=== PATIENT | male | born 1965 | race Caucasian/White ===

== ENCOUNTER 2019-07-08 07:12 | Emergency (ER) | payer OTHER, SELFPAY ==
--- NOTE | ~2019-07-08 | XR_ITS ---
EXAMINATION: XR chest 2V DATE: 07/08/2019 08:16 INDICATION: Influenza. Fever. TECHNIQUE: Frontal and lateral views of the chest were obtained. COMPARISON: Chest 2 views 05/04/2016 FINDINGS: There are mild airspace opacities in right lower lobe. No pleural effusion or pneumothorax. Calcified right hilar and mediastinal lymph nodes are consistent with old granulomatous disease. The heart size is normal. IMPRESSION: 1. Mild airspace opacities in right lower lobe, consistent with atelectasis versus pneumonia. Reviewed, dictated and finalized at location A. ATTENDANT IMPRESSION: 1. Mild airspace opacities in right lower lobe, consistent with atelectasis elaina lucinda pneumonia.
[2019-07-08 07:19] VITALS: BP 154/89; PULSE 131; RESP 20; TEMP 38.7; O2SAT 96
--- NOTE | 2019-07-08 08:05 | ED.URI ---
HPI - URI/Sore Throat General Chief Complaint: Upper Respiratory Infection Stated Complaint: cold sx Time Seen by Provider: 07/08/19 07:59 Source: patient and RN notes reviewed Mode of arrival: ambulatory Limitations: no limitations History of Present Illness HPI Narrative: Pt is a 53 y/o male who presents to the ED with c/o flu-like symptoms starting yesterday. His notes that he first became sick roughly 1.5 weeks ago, but states that his symptoms had resolved until yesterday. Pt reports having a fever, chills, body aches, productive cough, and a sinus headache. According to the nurse, the pt has been taking Tylenol and Ibuprofen for his symptoms. MD elicited complaint: other (Flu-like symptoms) Onset (ago): day(s) (1) Associated symptoms: fever, chills, headache, cough (productive) and other (body aches) Treatments prior to arrival: acetaminophen and ibuprofen Related Data Home Medications Medication Instructions Recorded Confirmed amlodipine 10 mg DAILY 07/08/19 atenolol 50 mg PO DAILY 07/08/19 atorvastatin 40 mg PO DAILY 07/08/19 hydrochlorothiazide 50 mg PO DAILY 07/08/19 lisinopril 5 mg PO DAILY 07/08/19 potassium chloride 10 meq PO DAILY 07/08/19 Allergies Allergy/AdvReac Type Severity Reaction Status Date / Time metformin AdvReac Diarrhea Verified 07/08/19 07:24 Review of Systems Review of Systems: All systems reviewed & are unremarkable except as noted in HPI and below Constitutional: Constitutional: Reports body ache(s), Reports chills, Reports fever(s) and Reports headache(s) Respiratory: Respiratory: Reports cough (productive) PMFSH Past Medical History Medical History Diabetes Hip fracture, right HLD (hyperlipidemia) HTN (hypertension) Surgical History Surgical History History of hip surgery repair of fractured rt hip Social History Social History Smoking status: Former smoker Comments PCP is Dr. Dillon. Exam Const: General: healthy appearing, no acute distress and well developed Nutritional Appearance: well nourished Orientation/consciousness: patient oriented x3 (alert) and Other orientation findings (Alert) Limitations: no limitations HENMT: Head: normocephalic and atraumatic Resp: Effort & Inspection: normal respiratory effort Auscultation: clear to auscultation bilaterally, no rales, no rhonchi, no wheezes and other (breath sounds equal) Cardio: Rate: tachycardic Rhythm: regular rhythm Heart sounds: no gallops and no murmurs GI: Inspection: non-distended GI Palp: No abdominal tenderness and Yes Soft to palpation Auscultation: other (bowel sounds present) Skin: General skin exam: normal color and no rashes or lesions noted Neuro: General: patient oriented x3 (alert), moves all extremities and no focal motor deficits Cranial nerves: Yes facial symmetry Speech: normal speech Motor exam (neuro): Motor abnormalities not present Extrem: General: normal to inspection, full ROM and no pedal edema Psych: Affect: normal affect Course Vital Signs Vital signs: Vital Signs Temperature 38.7 C H 07/08/19 07:19 Pulse Rate 131 H 07/08/19 07:19 Respiratory Rate 20 07/08/19 07:19 Blood Pressure 154/89 H 07/08/19 07:19 Pulse Oximetry 96 07/08/19 07:19 Temperature 38.7 C H 07/08/19 07:19 Pulse Rate 102 H 07/08/19 09:58 Respiratory Rate 16 07/08/19 09:58 Blood Pressure 165/86 H 07/08/19 09:58 Pulse Oximetry 97 07/08/19 09:58 MDM - URI/Sore Throat Lab Data Result diagrams: 07/08/19 08:58 Labs: Lab Results 07/08/19 Range/Units 08:58 Sodium 132 L (137-145) mmol/L Potassium 3.8 (3.4-5.0) mmol/L Chloride 92 L (98-107) mmol/L Carbon Dioxide 29 (22-30) mmol/L BUN 14 (9-20) mg/dL Creatinine 1.00 (0.7-1.3) mg/dL Estim Creat Clear Calc 90 ml/min Estimate
[2019-07-08] MEDS: ACETAMINOPHEN 500 MG TABLET 1000 MG PO (08:44)
[2019-07-08] MEDS: LACTATED RINGERS 1,000 ML 999 ML IV CONT ×2 (08:56)
[2019-07-08 09:14] LABS: Blood Urea Nitrogen 14 mg/dL (9-20); Calcium 9.4 mg/dL (8.4-10.2); Carbon Dioxide 29 mmol/L (22-30); Chloride 92 mmol/L (98-107); Estimated CRCL calculation 90 ml/min; Estimated Glomerular Filt Rate > 60; Glucose 174 mg/dL (75-110); Potassium 3.8 mmol/L (3.4-5.0); Sodium 132 mmol/L (137-145)
[2019-07-08 09:58] VITALS: BP 165/86; PULSE 102; RESP 16; O2SAT 97
== END 2019-07-08 10:14 | disposition home or self-care (01) ==
PROVIDERS: Emergency Provider Emergency Medicine; PCP Internal Medicine Infectious Disease
DX: J10.1 Influenza due to other identified influenza virus with other respiratory manifestations (principal); E11.9 Type 2 diabetes mellitus without complications; E78.5 Hyperlipidemia, unspecified; I10 Essential (primary) hypertension; Z87.891 Personal history of nicotine dependence; R91.8 Other nonspecific abnormal finding of lung field
CPT/HCPCS: 36415; 71046; 80048; 87804; 96360; 99283; A9270; J7120

== ENCOUNTER 2019-07-18 11:34 | Observation (INO) | payer OTHER, BC, SELFPAY ==
[2019-07-18] VITALS (27 sets, daily range): BP systolic 104–137; BP diastolic 58–81; PULSE 61–76; RESP 16–20; TEMP 35.8–36.6; O2SAT 93–99
--- NOTE | ~2019-07-18 | XR_ITS ---
XR chest 2V DATE: 07/18/2019 11:57 INDICATION: Hemoptysis TECHNIQUE: PA and lateral views COMPARISON: 07/08/2021 view chest FINDINGS: There is increased infiltrate in the right lower lobe and mild infiltrate in the left retro cardiac area, left lower lobe since 07/08/2019. Findings are consistent with bilateral pneumonia. Normal heart size. There is evidence of old pulmonary granulomas disease. No hilar or mediastinal enl argement. No pleural effusion or pulmonary vascular congestion or pneumothorax. Mild thoracic and lumbar scoliosis. IMPRESSION: Bilateral lower lobe infiltrates, right greater than left, increased since 07/08/2019 Reviewed, dictated and finalized at location A. N STRINGER IMPRESSION: Bilateral lower lobe infiltrates, right greater than left, increase d since 07/08/2019
[2019-07-18 11:55] LABS: Basophils Percent Auto 0.4 % (0.2-1.2); Eosinophils Absolute Auto 0.1 K/mm3 (0-0.3); Eosinophils Percent Auto 2.1 % (0-4.4); Hematocrit 38.9 % (42.0-52.0); Hemoglobin 12.3 g/dL (14.0-18.0); Lymphocytes Absolute Auto 1.02 K/mm3 (0.9-3.2); Lymphocytes Percent Auto 36.2 % (18.3-44.2); Mean Corpuscular HGB Conc 31.6 g/dl (32-36); Mean Corpuscular Hemoglobin 26.7 pg (26-34); Mean Corpuscular Volume 84.4 fl (80-100); Mean Platelet Volume 8.8 fl (7.4-10.4); Monocytes Absolute Auto 0.1 K/mm3 (0.1-0.6); Monocytes Percent Auto 3.9 % (2.6-8.5); Neutrophils Absolute Auto 1.6 K/mm3 (1.3-6.7); Neutrophils Percent Auto 57.4 % (45.5-73.1); Platelet Count Result 401 k/mm3 (150-375); Red Blood Count 4.61 M/mm3 (4.6-6.20); Red Cell Distribution Width 16.6 % (11.5-14.5); White Blood Count 2.8 K/mm3 (4.5-10.0)
[2019-07-18 12:17] LABS: Blood Urea Nitrogen 18 mg/dL (9-20); Calcium 9.8 mg/dL (8.4-10.2); Carbon Dioxide 26 mmol/L (22-30); Chloride 94 mmol/L (98-107); Estimated CRCL calculation 100 ml/min; Estimated Glomerular Filt Rate > 60; Glucose 210 mg/dL (75-110); Potassium 4.1 mmol/L (3.4-5.0); Sodium 136 mmol/L (137-145)
--- NOTE | 2019-07-18 12:32 | ED.URI ---
HPI - URI/Sore Throat General Chief Complaint: Unspecified Stated Complaint: coughing up blood Time Seen by Provider: 07/18/19 12:22 Source: patient and RN notes reviewed Mode of arrival: ambulatory Limitations: no limitations History of Present Illness HPI Narrative: A 53 y/o male presents to the with hemoptsis for the past 9 days. He states that he was seen here on 07/08/19 and was dx with the flu. He reports that in the morning 9 days ago he began to cough and coughed up some phlegm with streaks of blood in it. He notes that every morning since he has had this happen, but only in the mornings. He also notes that his other flu symptoms have resolved. He denies any fevers, chills, SOB, N/V/D, ABD pain, BARRETT, and any other medical complaints at this time. MD elicited complaint: other (hemoptsis) Onset (ago): day(s) (9) Consistency: intermittent (every morning) Description of mucous: bloody (streaks) Associated symptoms: denies other symptoms Related Data Home Medications Medication Instructions Recorded Confirmed amlodipine 10 mg DAILY 07/08/19 atenolol 50 mg PO DAILY 07/08/19 atorvastatin 40 mg PO DAILY 07/08/19 hydrochlorothiazide 50 mg PO DAILY 07/08/19 lisinopril 5 mg PO DAILY 07/08/19 potassium chloride 10 meq PO DAILY 07/08/19 Allergies Allergy/AdvReac Type Severity Reaction Status Date / Time metformin AdvReac Diarrhea Verified 07/18/19 11:38 Review of Systems Review of Systems: All systems reviewed & are unremarkable except as noted in HPI and below Constitutional: Constitutional: Denies chills, Denies fatigue, Denies fever(s), Denies headache(s) and Denies night sweats Eyes: Eyes: Denies change in vision, Denies loss of vision and Denies other visual disturbances ENT: Denies headache(s), Denies hoarseness, Denies epistaxis, Denies nasal congestion and Denies sore throat Cardiovascular: Cardiovascular: Denies chest pain, Denies leg edema, Denies palpitations and Denies dyspnea Respiratory: Respiratory: Reports hemoptysis (streaking), Denies dyspnea and Denies wheezing Gastrointestinal: Gastrointestinal: Denies abdominal pain, Denies diarrhea, Denies nausea and Denies vomiting Genitourinary: Genitourinary: Denies hematuria, Denies dysuria and Denies urinary frequency Musculoskeletal: Musculoskeletal: Denies abnormal gait, Denies deformity, Denies joint swelling, Denies muscle weakness and Denies numbness Integumentary/Breasts: Skin/Breast: Denies rash, Denies unusual bruising and Denies wounds Neurologic: Denies abnormal gait, Denies headache(s), Denies focal weakness, Denies loss of vision and Denies numbness Psychiatric: Psychiatric: Reports no additional psychiatric complaints Endocrine: Endocrine: Denies fatigue and Denies palpitations Hematologic/Lymphatic: Hematologic/Lymphatic: Denies easy bleeding and Denies easy bruising Allergic/Immunologic: Allergic/Immunologic: Denies wheezing PMFSH Past Medical History Medical History Diabetes Hip fracture, right HLD (hyperlipidemia) HTN (hypertension) Surgical History Surgical History History of hip surgery repair of fractured rt hip Social History Social History Smoking status: Former smoker Exam Const: General: healthy appearing, no acute distress and well developed Nutritional Appearance: well nourished Orientation/consciousness: patient oriented x3 (alert) and Other orientation findings (Alert) Limitations: no limitations HENMT: Head: normocephalic and atraumatic Ears: external ears normal General nose exam: No nasal discharge present and no epistaxis Face and sinus: face symmetric Mouth: Yes lip normal, Yes tongue normal and Yes moist mucous membranes Throat: other (No exudate, no erythema) Eyes: Conjunctivae: conjunctivae normal Sclera: sclerae normal EOM: EOMs intact bilaterally Neck:
[2019-07-18] MEDS: ALBUTEROL SULFATE NEB 2.5 MG/0.5 ML INH 5 MG INHALATION (12:52)
[2019-07-18] MEDS: IPRATROPIUM BR 0.02% INH SOLN 0.5 MG/2.5 ML VIAL INHALATION (12:53)
--- NOTE | 2019-07-18 13:15 | PC.NURSE ---
pt requesting to take with edp before tylenol or ivf iniated.
[2019-07-18 14:16] LABS: INR 1.1; Prothrombin Time 13.4 Seconds (11.1-14.7)
[2019-07-18 14:17] LABS: Partial Thromboplastin Time 28.9 SECONDS (22.3-36.8)
[2019-07-18] MEDS: AZITHROMYCIN 250 MG TABLET 500 MG PO (14:40)
[2019-07-18] MEDS: LACTATED RINGERS 1,000 ML 999 ML IV CONT (14:40)
[2019-07-18 15:46] LABS: Hemoglobin A1C 7.7 % (<5.7)
--- NOTE | 2019-07-18 16:15 | PM.IMHP ---
H&P: HPI History of Present Illness Chief complaint: coughing up blood Narrative: Pernell Astorga is a very pleasant 53-year-old male with [id number] type 2 diabetes mellitus, hypertension, and hyperlipidemia who presented to the emergency department earlier this afternoon via private vehicle from home for evaluation of coughing up blood. He was diagnosed with influenza A July 08, 2019 and completed a course of Tamiflu. He has felt much better with regards to his flu symptoms however continues to have a nagging cough. In fact, he told his today that he has been coughing up blood admixed with clear sputum and she insisted he come in for evaluation. He denies epistaxis and says he has not been coughing particularly hard. He has never had similar symptoms in the past. Weight has remained stable. He has been afebrile for the last 5 days. No night sweats. No exposure to tuberculosis. No nausea, vomiting, or diarrhea. Review of Systems Review of Systems: Narrative: 12 systems are reviewed with pertinent positives and negatives as per HPI. He has been afebrile for the last several days. Appetite is improved. Flu symptoms have abated except for the cough. No chest pain or pleuritic pain. Denies shortness of breath. No nausea, vomiting, or diarrhea. He admits that he does not check his glucose at home. He denies retinopathy, nephropathy, and neuropathy however he has been having some tingling in his right index finger and is wondering if it is related to carpal tunnel. Except as document, all other systems were reviewed and are negative. [facility] Past Medical History Medical History (Updated 07/18/19 @ 17:35 by Leslye Bernard PA-C) Hip fracture, right Hyperlipidemia Hypertension Osteoarthritis Type 2 diabetes mellitus Hemoglobin A1c was 7.7% today. Surgical History Surgical History (Updated 07/18/19 @ 17:30 by Leslye Bernard PA-C) History of hip surgery repair of fractured rt hip Status post right knee replacement Family History Family History (Updated 07/18/19 @ 17:31 by Leslye Bernard PA-C) Mother Carcinoma of colon Social History Social History (Updated 07/18/19 @ 17:32 by Leslye Bernard PA-C) Social History: The patient is and lives with his in [place]. He has no biological children. He designates his , Janneth, as his surrogate decision-maker and he wishes to be a full code. He has a remote smoking history and quit 30+ years ago. No alcohol or drug abuse. He is a driver lifter of sanitation truck. Meds Home Medications and Allergies Home Medications Medication Instructions Recorded Confirmed Type amlodipine 10 mg DAILY 07/08/19 History atenolol 50 mg PO DAILY 07/08/19 History atorvastatin 40 mg PO DAILY 07/08/19 History hydrochlorothiazide 50 mg PO DAILY 07/08/19 History lisinopril 5 mg PO DAILY 07/08/19 History oseltamivir [Tamiflu] 75 mg PO DAILY #5 cap 07/08/19 Rx potassium chloride 10 meq PO DAILY 07/08/19 History Allergies Allergy/AdvReac Type Severity Reaction Status Date / Time metformin AdvReac Diarrhea Verified 07/18/19 11:38 Vital Signs Vital Signs - 24 hr 07/18/19 11:36 07/18/19 12:54 07/18/19 13:03 Temperature 96.4 F L Pulse Rate 73 64 64 Respiratory Rate 20 20 20 Blood Pressure 137/81 Pulse Oximetry 98 07/18/19 13:14 07/18/19 13:15 07/18/19 13:16 Temperature Pulse Rate 69 69 70 Respiratory Rate Blood Pressure 121/70 Pulse Oximetry 94 93 94 07/18/19 13:32 07/18/19 13:45 07/18/19 13:46 Temperature Pulse Rate 76 64 64 Respiratory Rate Blood Pressure 109/74 Pulse Oximetry 95 96 96 07/18/19 14:00 07/18/19 14:01 07/18/19 14:21 Temperature Pulse Rate 64 67 66 Respiratory Rate Blood Pressure 114/72 Pulse Oximetry 94 95 96 07/18/19 14:30 07/18/19 14:31 07/18/19 14:51 Temperature Pulse Rate 61 62 69 Respiratory Rate Blood Pressure 108/71 Pulse Oxim
--- NOTE | 2019-07-18 17:15 | ED.GENADULT ---
HPI - General Adult General Source: patient and RN notes reviewed Mode of arrival: ambulatory Limitations: no limitations Related Data Home Medications Medication Instructions Recorded Confirmed amlodipine 10 mg DAILY 07/08/19 atenolol 50 mg PO DAILY 07/08/19 atorvastatin 40 mg PO DAILY 07/08/19 hydrochlorothiazide 50 mg PO DAILY 07/08/19 lisinopril 5 mg PO DAILY 07/08/19 potassium chloride 10 meq PO DAILY 07/08/19 Allergies Allergy/AdvReac Type Severity Reaction Status Date / Time metformin AdvReac Diarrhea Verified 07/18/19 11:38 [facility] Past Medical History Medical History Diabetes Hip fracture, right HLD (hyperlipidemia) HTN (hypertension) Surgical History Surgical History History of hip surgery repair of fractured rt hip Social History Social History Smoking status: Former smoker Course Vital Signs Vital signs: Vital Signs Temperature 96.4 F L 07/18/19 11:36 Pulse Rate 73 07/18/19 11:36 Respiratory Rate 20 07/18/19 11:36 Blood Pressure 137/81 07/18/19 11:36 Pulse Oximetry 98 07/18/19 11:36 Temperature 96.4 F L 07/18/19 11:36 Pulse Rate 71 07/18/19 16:49 Respiratory Rate 16 07/18/19 16:49 Blood Pressure 107/65 07/18/19 16:49 Pulse Oximetry 95 07/18/19 16:49 Medical Decision Making Vital Signs Vital Signs: Vital Signs Temperature 96.4 F L 07/18/19 11:36 Pulse Rate 73 07/18/19 11:36 Respiratory Rate 20 07/18/19 11:36 Blood Pressure 137/81 07/18/19 11:36 Pulse Oximetry 98 07/18/19 11:36 Temperature 96.4 F L 07/18/19 11:36 Pulse Rate 71 07/18/19 16:49 Respiratory Rate 16 07/18/19 16:49 Blood Pressure 107/65 07/18/19 16:49 Pulse Oximetry 95 07/18/19 16:49 Lab Data Result diagrams: 07/18/19 11:45 07/18/19 11:44 Labs: Lab Results 07/18/19 07/18/19 07/18/19 Range/Units 11:44 11:44 11:44 WBC (4.5-10.0) K/mm3 RBC (4.6-6.20) M/mm3 Hgb (14.0-18.0) g/dL Hct (42.0-52.0) % MCV (80-100) fl MCH (26-34) pg MCHC (32-36) g/dl RDW (11.5-14.5) % Plt Count (150-375) k/mm3 MPV (7.4-10.4) fl Immature Gran % (Auto) (0-0.5) % Neut % (Auto) (45.5-73.1) % Lymph % (Auto) (18.3-44.2) % [place] % (Auto) (2.6-8.5) % Eos % (Auto) (0-4.4) % Baso % (Auto) (0.2-1.2) % Lymph # (Auto) (0.9-3.2) K/mm3 [place] # (Auto) (0.1-0.6) K/mm3 Eos # (Auto) (0-0.3) K/mm3 Baso # (Auto) (0.0-0.1) K/mm3 Abs Immat Gran (auto) (0.00-0.031) K/mm3 Absolute Neuts (auto) (1.3-6.7) K/mm3 Absolute Nucleated RBC (0.0-0.012) K/mm3 Nucleated RBC % (0.0-0.2) % PT 13.4 (11.1-14.7) Seconds INR 1.1 APTT 28.9 (22.3-36.8) SECONDS Sodium 136 L (137-145) mmol/L Potassium 4.1 (3.4-5.0) mmol/L Chloride 94 L (98-107) mmol/L Carbon Dioxide 26 (22-30) mmol/L BUN 18 (9-20) mg/dL Creatinine 0.90 (0.7-1.3) mg/dL Estim Creat Clear Calc 100 ml/min Estimated GFR > 60 (59 - ) Glucose 210 H (75-110) mg/dL Hemoglobin A1c 7.7 H (<5.7) % Calcium 9.8 (8.4-10.2) mg/dL 07/18/19 Range/Units 11:45 WBC 2.8 L (4.5-10.0) K/mm3 RBC 4.61 (4.6-6.20) M/mm3 Hgb 12.3 L (14.0-18.0) g/dL Hct 38.9 L (42.0-52.0) % MCV 84.4 (80-100) fl MCH 26.7 (26-34) pg MCHC 31.6 L (32-36) g/dl RDW 16.6 H (11.5-14.5) % Plt Count 401 H (150-375) k/mm3 MPV 8.8 (7.4-10.4) fl Immature Gran % (Auto) 0.0 (0-0.5) % Neut % (Auto) 57.4 (45.5-73.1) % Lymph % (Auto) 36.2 (18.3-44.2) % [place] % (Auto) 3.9 (2.6-8.5) % Eos % (Auto) 2.1 (0-4.4) % Baso % (Auto) 0.4 (0.2-1.2) % Lymph # (Auto) 1.02 (0.9-3.2) K/mm3 [place] # (Auto) 0.1 (0.1-0.6) K/mm3 Eos # (Auto) 0.1 (0-0.3) K/mm3 Baso # (Auto) 0.0 (0.0-0.1) K/mm3 A
[2019-07-18] MEDS: LACTATED RINGERS 1,000 ML 125 ML IV CONT (18:00)
--- NOTE | 2019-07-18 18:16 | PC.NURSE ---
Patient arrived on our floor from ER @1650. Patient oriented to room and started on IVF as ordered. Patient able to ambulate independent safely.
[2019-07-18 18:17] LABS: Blood Urea Nitrogen 14 mg/dL (9-20); Calcium 9.2 mg/dL (8.4-10.2); Carbon Dioxide 25 mmol/L (22-30); Chloride 96 mmol/L (98-107); Estimated CRCL calculation 100 ml/min; Estimated Glomerular Filt Rate > 60; Glucose 258 mg/dL (75-110); Potassium 3.8 mmol/L (3.4-5.0); Sodium 133 mmol/L (137-145)
[2019-07-18 20:55] LABS: Glucose Point of Care 134 (65-105)
[2019-07-19] MEDS: LACTATED RINGERS 1,000 ML 125 ML IV CONT (02:00)
[2019-07-19 06:00] VITALS: BP 108/65; PULSE 72; RESP 16; TEMP 36.8; O2SAT 94
[2019-07-19 06:15] LABS: Basophils Percent Auto 0.3 % (0.2-1.2); Eosinophils Absolute Auto 0.1 K/mm3 (0-0.3); Hematocrit 36.7 % (42.0-52.0); Hemoglobin 11.8 g/dL (14.0-18.0); Immature Granulocyte Absolute 0.01 K/mm3 (0.00-0.031); Immature Granulocyte Percent A 0.3 % (0-0.5); Lymphocytes Absolute Auto 1.46 K/mm3 (0.9-3.2); Lymphocytes Percent Auto 47.6 % (18.3-44.2); Mean Corpuscular HGB Conc 32.2 g/dl (32-36); Mean Corpuscular Hemoglobin 27.1 pg (26-34); Mean Corpuscular Volume 84.4 fl (80-100); Mean Platelet Volume 8.6 fl (7.4-10.4); Monocytes Absolute Auto 0.1 K/mm3 (0.1-0.6); Monocytes Percent Auto 2.9 % (2.6-8.5); Neutrophils Absolute Auto 1.4 K/mm3 (1.3-6.7); Neutrophils Percent Auto 46.9 % (45.5-73.1); Platelet Count Result 398 k/mm3 (150-375); Red Blood Count 4.35 M/mm3 (4.6-6.20); Red Cell Distribution Width 16.5 % (11.5-14.5); White Blood Count 3.1 K/mm3 (4.5-10.0)
[2019-07-19 06:52] LABS: Blood Urea Nitrogen 15 mg/dL (9-20); Calcium 9.4 mg/dL (8.4-10.2); Carbon Dioxide 29 mmol/L (22-30); Chloride 96 mmol/L (98-107); Estimated CRCL calculation 100 ml/min; Estimated Glomerular Filt Rate > 60; Glucose 146 mg/dL (75-110); Potassium 4.1 mmol/L (3.4-5.0); Sodium 137 mmol/L (137-145)
[2019-07-19] MEDS: AMLODIPINE BESYLATE 5 MG TABLET 10 MG PO (08:39)
[2019-07-19] MEDS: atenoloL 50 MG TABLET PO (08:40)
[2019-07-19] MEDS: GLIMEPIRIDE 2 MG TABLET PO (08:40)
[2019-07-19] MEDS: lisinopriL 5 MG TABLET PO (08:40)
[2019-07-19] MEDS: POTASSIUM CHLORIDE 10 MEQ TABLET.ER PO (08:40)
[2019-07-19] MEDS: IPRATROPIUM BR 0.02% INH SOLN 0.5 MG/2.5 ML VIAL INHALATION ×2 (08:42→14:18)
[2019-07-19] MEDS: ALBUTEROL SULFATE NEB 2.5 MG/0.5 ML INH 5 MG INHALATION ×2 (08:42→14:18)
[2019-07-19 08:43] LABS: Glucose Point of Care 186 (65-105)
[2019-07-19 08:45] VITALS: PULSE 59; RESP 20
[2019-07-19 08:51] VITALS: PULSE 64; RESP 20
[2019-07-19] MEDS: hydroCHLOROthiazide 25 MG TABLET 50 MG PO (09:08)
[2019-07-19 12:23] LABS: Glucose Point of Care 73 (65-105)
[2019-07-19 14:00] VITALS: BP 107/66; PULSE 96; RESP 16; TEMP 36.4; O2SAT 97
[2019-07-19 14:20] VITALS: PULSE 69; RESP 20
[2019-07-19 14:31] VITALS: PULSE 73; RESP 20
--- NOTE | 2019-07-19 14:55 | PM.DS ---
DS: Diagnosis Admitting Diagnosis Admitting Diagnosis: Pneumonia, unspecified organism Discharge Diagnosis (1) Pneumonia: Code(s): J18.9 - Pneumonia, unspecified organism Status: Acute (2) Type 2 diabetes mellitus: Code(s): E11.9 - Type 2 diabetes mellitus without complications Status: Acute (3) Hypertension: Code(s): I10 - Essential (primary) hypertension Status: Acute DS: Summary Hospital Course Reason for hospitalization: Cough with hemoptysis Hospital Course: Admitted for cough with hemoptysis. Had been around multiple ill coworkers. Presented to ED were chest x-ray showed bibasilar infiltrates. Responded nicely to his Zithromax and ceftriaxone and vancomycin overnight. Was up and about eating and drinking not require oxygen and requesting go home the following day. Status at Discharge Functional status at discharge: independent ambulation Overall status at discharge: patient is progressing back to baseline Time Spent with Patient Time attestation: Total time spent providing and/or coordinating discharge services:33 m Time spent: Greater than 30 minutes Exam Narrative: Exam Narrative: Neck no JVD. Chest normal AP diameter. Normal effort. Rhonchi both lower lobes. Clear anteriorly. Heart regular no murmurs. Extremities no edema. Abdomen good bowel sounds soft nontender no mass. Cranial nerves intact to inspection. Tone and strength symmetric. DS: Data Data Completed and Pending Labs on day of discharge: Labs from last 24 hours 07/19/19 07/19/19 07/19/19 12:20 08:39 05:48 WBC 3.1 L RBC 4.35 L Hgb 11.8 L Hct 36.7 L MCV 84.4 MCH 27.1 MCHC 32.2 RDW 16.5 H Plt Count 398 H MPV 8.6 Immature Gran % (Auto) 0.3 Neut % (Auto) 46.9 Lymph % (Auto) 47.6 H [place] % (Auto) 2.9 Eos % (Auto) 2.0 Baso % (Auto) 0.3 Lymph # (Auto) 1.46 [place] # (Auto) 0.1 Eos # (Auto) 0.1 Baso # (Auto) 0.0 Abs Immat Gran (auto) 0.01 Absolute Neuts (auto) 1.4 Absolute Nucleated RBC 0.0 Nucleated RBC % 0.0 Sodium Potassium Chloride Carbon Dioxide BUN Creatinine Estim Creat Clear Calc Estimated GFR Glucose POC Capillary Glucose 73 186 H Hemoglobin A1c Calcium Ur L.pneumophila Ag Urine Pneumococcal Ag 07/19/19 07/19/19 07/18/19 05:48 05:47 20:51 WBC RBC Hgb Hct MCV MCH MCHC RDW Plt Count MPV Immature Gran % (Auto) Neut % (Auto) Lymph % (Auto) [place] % (Auto) Eos % (Auto) Baso % (Auto) Lymph # (Auto) [place] # (Auto) Eos # (Auto) Baso # (Auto) Abs Immat Gran (auto) Absolute Neuts (auto) Absolute Nucleated RBC Nucleated RBC % Sodium 137 Potassium 4.1 Chloride 96 L Carbon Dioxide 29 BUN 15 Creatinine 0.90 Cancelled Estim Creat Clear Calc 100 Cancelled Estimated GFR > 60 Cancelled Glucose 146 H POC Capillary Glucose 134 H Hemoglobin A1c Calcium 9.4 Ur L.pneumophila Ag Urine Pneumococcal Ag 07/18/19 07/18/19 07/18/19 18:52 18:01 11:44 WBC RBC Hgb Hct MCV MCH MCHC RDW Plt Count MPV Immature Gran % (Auto) Neut % (Auto) Lymph % (Auto) [place] % (Auto) Eos % (Auto) Baso % (Auto) Lymph # (Auto) [place] # (Auto) Eos # (Auto) Baso # (Auto) Abs Immat Gran (auto) Absolute Neuts (auto) Absolute Nucleated RBC Nucleated RBC % Sodium 133 L Potassium 3.8 Chloride 96 L Carbon Dioxide 25 BUN 14 Creatinine 0.90 Estim Creat Clear Calc 100 Estimated GFR > 60 Glucose 258 H POC Capillary Glucose Hemoglobin A1c 7.7 H Calcium 9.2 Ur L.pneumophila Ag Pending Urine Pneumococcal Ag Pending Preliminary micro results at discharge 07/18/19 14:56 Sputum Culture - Preliminary Sputum Discharge Plan Discharge Attending physic
--- NOTE | 2019-07-19 15:08 | PCRCNOTE ---
07/18/191999 and 07/19/19 0200-Window of time for administration has passed. See next scheduled administration.
[2019-07-21 16:30] LABS: Pneumococcal Antigen Urine Not Detected (Not Detected)
[2019-07-22 15:47] LABS: Legionella pneumophila Ag Ur Not Detected (Not Detected)
== END 2019-07-19 18:00 | disposition home or self-care (01) ==
LOC: ANHED 15:11 → ANH3MEDSUR 07-19 07:00
PROVIDERS: Emergency Medicine; Physician Assistant; Admitting Provider Family Medicine; Emergency Provider Emergency Medicine; PCP Internal Medicine Infectious Disease; Visit Provider Internal Medicine
DX: J18.9 Pneumonia, unspecified organism (principal); E11.9 Type 2 diabetes mellitus without complications; I10 Essential (primary) hypertension; E78.5 Hyperlipidemia, unspecified; M19.90 Unspecified osteoarthritis, unspecified site; Z87.891 Personal history of nicotine dependence; Z96.651 Presence of right artificial knee joint
CPT/HCPCS: 36415; 71046; 80048; 83036; 85025; 85610; 85730; 87070; 87205; 87449; 87899; 94640; 96361; 96365; 96367; 96375; 99285; A9270; G0378; J0456; J0696; J3370; J7120

== ENCOUNTER 2021-10-08 18:01 | Emergency (ER) | payer BC, SELFPAY ==
[2021-10-08 18:08] VITALS: BP 135/76; PULSE 66; RESP 16; TEMP 36.2; O2SAT 100
--- NOTE | 2021-10-08 18:10 | ED.URI ---
HPI - URI/Sore Throat General Chief Complaint: Upper Respiratory Infection Stated Complaint: congestion,sinus pain Time Seen by Provider: 10/08/21 18:11 Source: patient and RN notes reviewed Mode of arrival: ambulatory Limitations: no limitations History of Present Illness HPI Narrative: 56-year-old male with a history of diabetes, HTN, HLD presented for complaint of sinus pressure and congestion and right ear pain for the last 2 days. Endorses cough started today, itchy throat. Cough is nonproductive. He denies shortness of breath, wheezing, nausea, vomiting, diarrhea, fever or chills. He is vaccinated for COVID and flu. He has had 1 negative COVID test at home yesterday. Has been taking Zyrtec, Sudafed, and [place] for symptoms. is sick with a sinus infection. MD elicited complaint: cough Related Data Home Medications Medication Instructions Recorded Confirmed amlodipine 10 mg PO DAILY 07/08/19 10/08/21 atenolol 50 mg PO DAILY 07/08/19 10/08/21 hydrochlorothiazide 50 mg PO DAILY 07/08/19 10/08/21 lisinopril 5 mg PO DAILY 07/08/19 10/08/21 glimepiride 2 mg PO DAILY 07/18/19 10/08/21 empagliflozin [Jardiance] 25 mg PO DAILY 10/08/21 10/08/21 rosuvastatin 10 mg PO DAILY 10/08/21 10/08/21 Allergies Allergy/AdvReac Type Severity Reaction Status Date / Time metformin AdvReac Diarrhea Verified 10/08/21 18:09 Review of Systems Review of Systems: CONSTITUTIONAL: Denies malaise, chills, sweats, fever EYES: Denies visual changes, redness, or discharge ENT: Reports rhinorrhea, congestion, sinus pain CARDIOVASCULAR: Denies chest pain, palpitations, edema RESPIRATORY: Reports cough, post nasal drainage. Denies dyspnea GASTROINTESTINAL: Denies abdominal pain, nausea, vomiting, diarrhea SKIN: Denies rash or itching MUSCULOSKELETAL: denies myalgia NEUROLOGIC: Denies headache [facility] Past Medical History Medical History (Updated 10/08/21 @ 18:27 by Alejandrina Koehler, JONNIE) Hip fracture, right Hyperlipidemia Hypertension Osteoarthritis Type 2 diabetes mellitus Hemoglobin A1c was 7.7% today. Surgical History Surgical History History of hip surgery repair of fractured rt hip Status post right knee replacement Family History Family History Mother Carcinoma of colon Diabetes mellitus Social History Social History Social History: The patient is and lives with his in [place]. He has no biological children. He designates his , Janneth, as his surrogate decision-maker and he wishes to be a full code. He has a remote smoking history and quit 30+ years ago. No alcohol or drug abuse. He is a [employer] driver. Smoking packs per day: 1 Smoking cigarettes per day: 20.0 Tobacco type: cigarettes Smoking end date: 04/23/90 Alcohol intake: never Substance use: never Gender identity (if verbalized by the patient): Male Spiritual care concerns: No Agree to blood products: Yes Exam Narrative: GENERAL: Ill-appearing, nontoxic HEAD: Normocephalic EYES: conjunctivae clear ENT: Mucous membranes moist. TM's unable to visualize bilaterally due to cerumen; no tragal tenderness. Oropharynx erythematous without lesions or exudate, no drooling, no hoarseness, no trismus, uvula midline. No tripod positioning, muffled voice, soft palate or pharyngeal wall bulging NECK: Supple. No lymphadenopathy CHEST: Clear to auscultation, breath sounds equal. No wheezing, rhonchi, rales, or stridor. No respiratory distress, speaks in full sentences. HEART: Regular rate and rhythm. No murmur heard. SKIN: Warm, dry, no rash. NEURO: Alert and oriented x3. PSYCH: Normal mood and affect Course Course Emergency Course: Patient is aware of diagnosis, understands and agrees to treatment plan. Anticipatory guidance given. Андрей
[2021-10-08 18:24] VITALS: BP 135/76; PULSE 66; RESP 16; TEMP 36.2; O2SAT 100
== END 2021-10-08 18:34 | disposition home or self-care (01) ==
PROVIDERS: Emergency Provider Nurse Practitioner Family
DX: J30.2 Other seasonal allergic rhinitis (principal); E78.5 Hyperlipidemia, unspecified; I10 Essential (primary) hypertension; E11.9 Type 2 diabetes mellitus without complications; F17.210 Nicotine dependence, cigarettes, uncomplicated
CPT/HCPCS: 99213; G0463

== ENCOUNTER 2021-11-30 00:48 | Day surgery (SDC) | payer BC, SELFPAY ==
[2021-11-14 10:47] VITALS: BMI 29.4
--- NOTE | 2021-11-29 11:57 | WPDANESEPPF ---
Anes - Initial Pre Proc Eval Procedure: Operation Date: 11/30/21 10:30 Proposed Procedures p Screening Colonoscopy - Ulysses Florian MD Date/Time: 11/29/21 11:57 Surgeon: Ulysses Florian MD Pre Op Diagnosis: hx of colon polyps, family hx colon ca, neoplasm Patient Data Age: 56 Gender: M Height: 1.91 m Weight: 106.8 kg Allergies Allergy/AdvReac Type Severity Reaction Status Date / Time metformin AdvReac Diarrhea Verified 11/30/21 09:38 Home Medications Medication Instructions Recorded Confirmed Type amlodipine 10 mg PO DAILY 07/08/19 11/30/21 History atenolol 50 mg tablet 50 mg PO DAILY 07/08/19 11/30/21 History hydrochlorothiazide 50 mg tablet 50 mg PO DAILY 07/08/19 11/30/21 History lisinopril 5 mg tablet 5 mg PO DAILY 07/08/19 11/30/21 History glimepiride 2 mg tablet 2 mg PO DAILY 07/18/19 11/30/21 History empagliflozin 25 mg tablet 25 mg PO DAILY 10/08/21 11/30/21 History (Jardiance) fluticasone propionate 50 1 spray intranasal DAILY PRN 10/08/21 11/30/21 Rx mcg/actuation nasal allergy symptoms #16 grams spray,suspension (Flonase Allergy Relief) rosuvastatin 10 mg tablet 10 mg PO DAILY 10/08/21 11/30/21 History sodium sul 1.479 gram-potas ch See Rx Instructions PO PER PKG DIR 10/30/21 11/30/21 Rx 0.188 gram-magnes sul 0.225 gram #24 tabs tablet (Sutab) Patient hx anesthesia problems: none Family hx anesthesia problems: none Results Review: All pre-operative results and documents have been reviewed as part of the pre-operative evaluation. [facility] Past Medical History Medical History (Updated 11/29/21 @ 11:57 by Amish Alcaraz DO) Hairy cell leukemia Hip fracture, right Hyperlipidemia Hypertension Osteoarthritis Type 2 diabetes mellitus Hemoglobin A1c was 7.7% today. Surgical History Surgical History History of hip surgery repair of fractured rt hip Status post right knee replacement Family History Family History Mother Carcinoma of colon Diabetes mellitus Social History Social History Social History: The patient is and lives with his in [place]. He has no biological children. He designates his , Janneth, as his surrogate decision-maker and he wishes to be a full code. He has a remote smoking history and quit 30+ years ago. No alcohol or drug abuse. He is a [employer] driver. Smoking packs per day: 1 Smoking cigarettes per day: 20.0 Smoking status: Former smoker Tobacco type: cigarettes Smoking end date: 04/23/90 Alcohol intake: never Substance use: never Substance use type: does not use Living arrangements: with family Gender identity (if verbalized by the patient): Male Spiritual care concerns: No Agree to blood products: Yes Anes - Eval Final PreProcedure Day of Procedure 11/29/21 11:57 Patient weight: overweight Heart: regular rate and rhythm Lungs: clear to auscultation Airway: Mallampati scale class II Neurological: alert and oriented Last oral intake: >/= 8 hours ASA classification: III Emergent: no Anesthetic plan: proceed Anesthesia type and monitoring: general GIVS and standard monitoring Results Review: All pre-operative results and documents have been reviewed as part of the pre-operative evaluation. Informed Consent: The patient's anesthetic plan and its attendant risks and benefits were discussed with the patient/family/POA. Questions were solicited and answers provided to the satisfaction of the patient/family/POA.
[2021-11-30 09:38] LABS: Glucose Point of Care 95 mg/dl (65-105)
[2021-11-30 09:39] VITALS: BP 144/81; PULSE 57; RESP 21; TEMP 36.3; O2SAT 100
[2021-11-30] MEDS: LACTATED RINGERS 1,000 ML 150 ML IV CONT (09:51)
[2021-11-30] MEDS: AMPICILLIN 2 GM/NS 100 ML 2 GM/100 ML BAG IVPB (09:59)
--- NOTE | 2021-11-30 10:04 | PM.HPGS ---
History of Present Illness History of Present Illness Consent: Risks, benefits, and alternatives have been discussed and questions answered. Patient agrees to proceed with procedure. Chief complaint: hx of colon polyps, family hx colon ca, neoplasm Narrative: Pernell Astorga is a 56 year old male referred for colon cancer screening. He has a history of polyps. Also he has a family history of colon cancer. Review of Systems Review of Systems: All systems reviewed & are unremarkable except as noted in HPI and below PMFSH Past Medical History Medical History Hairy cell leukemia Hip fracture, right Hyperlipidemia Hypertension Osteoarthritis Type 2 diabetes mellitus Hemoglobin A1c was 7.7% today. Surgical History Surgical History History of hip surgery repair of fractured rt hip Status post right knee replacement Family History Family History Mother Carcinoma of colon Diabetes mellitus Social History Social History Social History: The patient is and lives with his in [place]. He has no biological children. He designates his , Janneth, as his surrogate decision-maker and he wishes to be a full code. He has a remote smoking history and quit 30+ years ago. No alcohol or drug abuse. He is a [employer] truck driver. Smoking packs per day: 1 Smoking cigarettes per day: 20.0 Smoking status: Former smoker Tobacco type: cigarettes Smoking end date: 04/23/90 Alcohol intake: never Substance use: never Substance use type: does not use Living arrangements: with family Gender identity (if verbalized by the patient): Male Spiritual care concerns: No Agree to blood products: Yes Meds Home Medications and Allergies Home Medications Medication Instructions Recorded Confirmed Type amlodipine 10 mg PO DAILY 07/08/19 11/30/21 History atenolol 50 mg tablet 50 mg PO DAILY 07/08/19 11/30/21 History hydrochlorothiazide 50 mg tablet 50 mg PO DAILY 07/08/19 11/30/21 History lisinopril 5 mg tablet 5 mg PO DAILY 07/08/19 11/30/21 History glimepiride 2 mg tablet 2 mg PO DAILY 07/18/19 11/30/21 History empagliflozin 25 mg tablet 25 mg PO DAILY 10/08/21 11/30/21 History (Jardiance) fluticasone propionate 50 1 spray intranasal DAILY PRN 10/08/21 11/30/21 Rx mcg/actuation nasal allergy symptoms #16 grams spray,suspension (Flonase Allergy Relief) rosuvastatin 10 mg tablet 10 mg PO DAILY 10/08/21 11/30/21 History sodium sul 1.479 gram-potas ch See Rx Instructions PO PER PKG DIR 10/30/21 11/30/21 Rx 0.188 gram-magnes sul 0.225 gram #24 tabs tablet (Sutab) Allergies Allergy/AdvReac Type Severity Reaction Status Date / Time metformin AdvReac Diarrhea Verified 11/30/21 09:38 Vital Signs Vital Signs - 24 hr 11/30/21 09:39 Temperature 36.3 C L Pulse Rate 57 L Respiratory Rate 21 H Blood Pressure 144/81 H Pulse Oximetry 100 Oxygen Delivery Room Air Exam Resp: Auscultation: clear to auscultation bilaterally Cardio: Rate: regular rate Rhythm: regular rhythm GI: GI Palp: Yes Soft to palpation and No Tenderness to palpation present (GI) Assessment and Plan Assessment and plan (1) Colon cancer screening: Code(s): Z12.11 - Encounter for screening for malignant neoplasm of colon Status: Acute Assessment and Plan: Colonoscopy with possible biopsy or polypectomy or cautery or injection of substances.
[2021-11-30] MEDS: SIMETHICONE ORAL SUSPENSION 20 MG/0.3 ML 30 ML BOTTLE 0.6 ML IRRIGATION (10:41)
--- NOTE | 2021-11-30 10:52 | SUR.OPER ---
Dr. Florian was unable to relocate the descending colon polyp, this polyp was not removed.
[2021-11-30 10:57] VITALS: BP 87/47; PULSE 55; RESP 20; O2SAT 96
[2021-11-30 11:07] VITALS: BP 97/58; PULSE 50; RESP 18; O2SAT 99
[2021-11-30 11:17] VITALS: BP 105/61; PULSE 50; RESP 18; O2SAT 99
== END 2021-11-30 11:26 | disposition home or self-care (01) ==
PROVIDERS: PCP Internal Medicine Infectious Disease; Visit Provider Internal Medicine Gastroenterology
PROC: 0DJD8ZZ Inspection of Lower Intestinal Tract, Via Natural or Artificial Opening Endoscopic (ICD-10-PCS; CPT 45378; principal; 2021-11-30 10:30)
DX: Z12.11 Encounter for screening for malignant neoplasm of colon (principal); K63.5 Polyp of colon; Z80.0 Family history of malignant neoplasm of digestive organs; E11.9 Type 2 diabetes mellitus without complications; E78.5 Hyperlipidemia, unspecified; I10 Essential (primary) hypertension; Z85.6 Personal history of leukemia; Z87.891 Personal history of nicotine dependence; Z79.84 Long term (current) use of oral hypoglycemic drugs
CPT/HCPCS: 45381; 45385; 82948; 88305; J0290; J2704; J7120